=== PATIENT | male | born 1995 | race Two or more races ===

== ENCOUNTER → 2016-11-28 | Outpatient (CLI) | payer OTHER ==
[~2016-11-28] MED LIST: CONRAY-43 43% 50ML VIAL (Q9960) As Ordered ONE; ISOVUE-M 300 61% 15ML VIAL (Q9967) As Ordered ONE; LIDOCAINE 1% MDV 20ML VIAL As Ordered ONE; TRIAMCINOLONE ACETONIDE SUSP 40 MG/ML VIAL (J3301) As Ordered ONE
--- NOTE | 2016-11-28 20:12 | REP ---
Right hip injection The procedure was performed under the direct supervision of Dr. Rodriguez. The benefits and risks including but not limited to pain infection and bleeding and anaphylaxis were explained to the patient and informed consent was obtained. The right femoral neck was localized using fluoroscopic guidance. The skin was prepped and draped in a sterile fashion. 1% lidocaine was used as a local anesthetic. Using fluoroscopic guidance a 22-gauge spinal needle was inserted and advanced to the femoral neck. 0.5 ml of Conray 43 was injected to verify placement. 10 ml of a solution containing 9 ml of 1% Xylocaine and 1 ml of Kenalog 40 mg was injected. The needle was then removed. The patient tolerated the procedure well and there were no immediate complications. One second of fluoro time was utilized for this procedure. Reviewed by CARMINE Judge 11/28/2016 01:22 PSigned by Jose Rodriguez MD 11/28/2016 08:03 P
== END ==
LOC: M RADPRO 11:07
PROVIDERS: ATTEND Orthopaedic Surgery
DX: M76.891 Other specified enthesopathies of right lower limb, excluding foot (principal); M25.551 Pain in right hip
CPT/HCPCS: 20610; 77002; J3301; Q9960

== ENCOUNTER → 2016-12-26 | Outpatient (CLI) | payer OTHER ==
[~2016-12-26] MED LIST changes: -ISOVUE-M 300 61% 15ML VIAL (Q9967) As Ordered ONE; -LIDOCAINE 1% MDV 20ML VIAL As Ordered ONE; -TRIAMCINOLONE ACETONIDE SUSP 40 MG/ML VIAL (J3301) As Ordered ONE
--- NOTE | 2016-12-26 12:59 | REP ---
MR arthrogram right hip: History: Right hip impingement. Pain. Evaluate for labral tear. 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 Technique: Precontrast imaging includes coronal T1 and T2-weighted scans of both hips. Postcontrast small field of view high resolution axial, coronal and sagittal images are acquired in T1 and T2-weighted scans with fat saturation. MR arthrographic findings: Pre injection MR imaging shows cortical and medullary bone signal intensity to be normal in the proximal femurs bilaterally. There is no evidence of avascular necrosis. No significant hip joint effusion is seen on either side. No periarticular bursal or cystic fluid collection is seen. The visualized tendon insertion sites are unremarkable. No intrapelvic mass or adenopathy is seen. Urinary bladder oliveira are smooth. Pre and postcontrast imaging demonstrates a bony convexity at the head and neck junction of the superolateral aspect of the proximal femur on the right consistent with cam type femoroacetabular impingement. There is good filling and enhancement of the right hip articulation on post injection images. No loose body is seen. Ligamentum teres is intact. There is irregularity and fraying of the superior aspect of the acetabular labral cartilage but no displaced tear is seen. No other articular cartilage defect is seen. The exam is otherwise unremarkable. Impression: Some degenerative fraying and hypertrophy of the superior articular acetabular cartilage with no displaced labral tear. Head/neck junction convexity in the proximal femur consistent with cam type femoroacetabular impingement. Signed by Kulwant Rodriguez MD 12/26/2016 06:05 P
--- NOTE | 2016-12-26 13:19 | REP ---
Injection procedure MR arthrography right hip: History: Right hip impingement and pain. Evaluate for labral tear. Procedure: The patient was interviewed and informed consent was obtained. After patient safety time-out was articulated and agreed to the right hip was prepped and draped anteriorly in the usual fashion. 1% lidocaine was used for local anesthetic and a 22 gauge 3 inch needle was passed into the right hip articulation without technical difficulty. Intra-articular needle position was confirmed by the injection of 1/2 ml of Conray 43. This is followed by the injection of 12 mL of a 20 mL sterile saline solution to which 0.15 mL of gadolinium was added. The patient tolerated the procedure well. Fluoroscopy time was 13 seconds. Two last image hold spot radiographs are saved. Impression: Injection procedure for MR arthrography right hip. Signed by Kulwant Rodriguez MD 12/26/2016 06:05 P
== END ==
LOC: M RADPRO 06:54
PROVIDERS: ATTEND Orthopaedic Surgery
DX: M25.851 Other specified joint disorders, right hip (principal)
CPT/HCPCS: 27093; 73723; 77002; A9576; Q9960

== ENCOUNTER → 2018-04-09 | Outpatient (REF) | LOC: M SMT 13:02 | DX: Z00.00 Encounter for general adult medical examination without abnormal findings (principal) ==